=== PATIENT | male | born 1955 | race African-American/Black ===

== ENCOUNTER 2016-11-08 01:54 | Inpatient (IN) | payer MEDICARE ==
--- NOTE | ~2016-11-08 | PA ---
Unit #: [id number] #: [id number] [facility]: [facility] AND[facility] [id number] [facility] [address] [place] [address] [id number] MR#: [id number] NAME: JAVI ANDERSON ROOM: P207 Age: 61 Sex: M Admission Date: 11/08/2016 : 1955 Date of Assessment: Attending Physician: Christian Norris M.D. Admitting Physician: Christian Norris M.D. Primary Care Physician: Nabeel Tobin M.D. PSYCHIATRIC ASSESSMENT DATE OF SERVICE 11/08/2016. IDENTIFYING DATA Mr. Anderson is a 61-year-old single disabled male who is a resident of [place], [place] and was transferred to us from [facility] on a voluntary basis. CHIEF COMPLAINT "Suicidal thoughts. HISTORY OF PRESENT ILLNESS Mr. Anderson is a 61-year-old male who took himself to [facility] reporting that he was upset with how he has lived with his life and endorses feelings of hopelessness and helplessness and suicidal ideation and that he had intent to kill himself and verbalized several different plans reporting of suicidal ideation over the last 40 years and increased in intensity this evening. He reports increasing depression and feelings of hopelessness and helplessness and worthlessness and suicidal ideation and intent and plan and was seen to be danger to self and as such, recommendation for an inpatient level of care was made, and the patient was medically cleared and then transferred to us. SUBSTANCE ABUSE HISTORY The patient reports a history of experimentation with alcohol, cocaine, amphetamines and benzodiazepines, and reports more recently, he has been on 6-day binge of crack cocaine and has been using an unknown amount on a daily basis. PAST PSYCHIATRIC HISTORY The patient has had a history of inpatient psychiatric hospitalization at [facility] in 2014. Review of the medical records indicate currently he is not active in any treatment program, and he is not seeing a psychiatrist and he is not taking any psychotropic medications. PAST MEDICAL HISTORY Hypertension and arthritis. ALLERGIES No known medication allergies. PERSONAL AND SOCIAL HISTORY A 61-year-old male who reports that he is single, Unit #: [id number] #: [id number] Patient: JAVI ANDERSON unemployed and essentially homeless and has poor social support system. MENTAL STATUS EXAMINATION An elderly male who was casually dressed with a fair personal hygiene and appears to be in no acute distress or discomfort. He was awake and alert on interaction with intact orientation to time, place, and person. His mood was anxious and depressed with a congruent affect. His speech is slow and restricted in content. His thought processes were disorganized with some looseness of associations and suicidal ideations. His insight and judgment remain significantly impaired. DIAGNOSTIC IMPRESSION Psychiatric: Major depressive disorder, recurrent, moderate, without psychotic features. Cocaine dependence, moderate. Medical: Hypertension. Stressors: Moderate psychosocial stressors. TREATMENT PLAN 1. The patient has presented with a history of substance abuse and mood disorder and has been decompensating and will need inpatient hospitalization for safety and stabilization. We will start him back on his home medications. We will adjust the medications and monitor response. 2. Supportive therapy was provided to the patient. 3. Safe, structured, and nourishing environment will be provided. ESTIMATED LENGTH OF STAY 5 to 7 days. ABILITY TO HELP SELF Limited. WILLINGNESS TO HELP SELF The patient appears to be willing to help self. STRENGTHS 1. Communicative. 2. Cooperative. PROBLEMS 1. Chronic dysphoric symptoms. 2. Chronic chemical dependency. 3. Poor social support system. DISCHARGE CRITERIA This will be contingent upon the patient's ability to go through detox without having any significant withdrawal symptoms as well as his ability to stay safe to himself, particularly after discharge from the hospital. Dictated by... Christian Norris M.D. LEE/marco antonio TD: 11/08/2016 07:22 Unit #: [id number] #: [id number] Patient: JAVI ANDERSON JOB #: [id number] PSYCHIATRIC ASSESSMENT Page 1 of 1 X Christian Norris MD X PSYCHIATRIC ASSESSMENT
--- NOTE | ~2016-11-08 | DS ---
Unit #: [id number] #: [id number] [facility]: [facility] [id number] [facility] [address] [place] [address] [id number] I MR#: [id number] NAME: JAVI WEI ROOM: P207 Age: 61 Sex: M Admission Date: 11/08/2016 : 1955 Discharge Date: Attending Physician: Christian Norris M.D. Primary Care Physician: Nabeel Tobin M.D. DISCHARGE SUMMARY IDENTIFYING DATA Mr. Wei is a 61-year-old male, who is a resident of [place], [place], and was transferred to from [facility]. DISCHARGE DIAGNOSES Psychiatric: Major depressive disorder, recurrent, moderate, without psychotic features; cocaine dependence, moderate. Medical: None. Stressors: Moderate psychosocial stressors. HISTORY OF PRESENT ILLNESS Please see initial psychiatric evaluation for details. PAST PSYCHIATRIC HISTORY Please see initial psychiatric evaluation for details. PAST MEDICAL HISTORY Please see initial psychiatric evaluation for details. HOSPITAL COURSE The [facility] and was oriented to the hospital environment. Routine p.r.n. medications were initiated, and he was started on Wellbutrin XL 150 mg a day and was closely monitored. He was taking the medications regularly and was tolerating them fairly well and was able to come out of the detox without any complications and was willing to continue treatment on an outpatient basis and as such, it was decided that he will be discharged home and will continue treatment on an outpatient basis. DISCHARGE MEDICATIONS Wellbutrin XL 150 mg a day for depression. DISCHARGE CONDITION Stable. PROGNOSIS Fair. Dictated by... Christian Norris M.D. IAA/modl Unit #: [id number] #: [id number] Patient: JAVI WEI TD: 11/15/2016 07:45 JOB #: [id number] DISCHARGE SUMMARY Page 1 of 1 X Christian Norris MD X DISCHARGE SUMMARY
--- NOTE | ~2016-11-08 | PN ---
Unit #: [id number] #: [id number] Patient: JAVI ANDERSON [id number] [facility] [address] [place] [address] [id number] I MR#: [id number] NAME: JAVI ANDERSON ROOM: P207 Age: 61 Sex: M Admission Date: 11/08/2016 : 1955 Attending Physician: Christian Norris M.D. Admitting Physician: Christian Norris M.D. Primary Care Physician: Nabeel Tobin M.D. [facility] PROGRESS NOTES DATE 11/13/2016 DISCUSSION Mr. Anderson is a 61-year-old male who was seen today and chart was reviewed and case was discussed with the staff. He has been anxious, withdrawn though has not shown any agitation, irritability and has been cooperative with treatment recommendations as he has been taking medications and has been reporting some persistent depression and anxiety and feelings of hopelessness and suicidal ideation. MENTAL STATUS EXAMINATION An elderly male who was casually dressed with fair personal hygiene and appears to be in no acute distress or discomfort. He was awake and alert with impaired attention and concentration. His mood was anxious and depressed with congruent affect. His speech is slow and goal-directed. He denies any suicidal or homicidal ideations. His insight remains slightly impaired. TREATMENT PLAN 1. Will continue on his current medications and treatment protocol. Will monitor response adjustments as needed. 2. Will continue to follow up. Dictated by... Sang Craft/felipe TD: 11/14/2016 23:04 JOB #: [id number] Unit #: [id number] #: [id number] Patient: JAVI ANDERSON PEAMIKI PROGRESS NOTES Page 1 of 1 X Christian Norris MD X PROGRESS NOTE
--- NOTE | ~2016-11-08 | PN ---
Unit #: [id number] #: [id number] Patient: JAVI ANDERSON [id number] [facility] [address] [place] [address] [id number] I MR#: [id number] NAME: JAVI ANDERSON ROOM: P207 Age: 61 Sex: M Admission Date: 11/08/2016 : 1955 Attending Physician: Christian Norris M.D. Admitting Physician: Christian Norris M.D. Primary Care Physician: Nabeel Tobin M.D. [facility] PROGRESS NOTES DATE 11/11/2016 DISCUSSION Mr. Anderson is a 61-year-old, male who was seen today and chart was reviewed and case was discussed with the staff. He remains anxious, withdrawn, depressed and seclusive to himself appears to be quite disorganized and has not been able to get out of his room and just stays there and sleeps and does not participate much in treatment related activities. MENTAL STATUS EXAM An elderly male who was casually dressed with fair personal hygiene, appears to be in no acute distress or discomfort. He was awake and alert with impaired attention and concentration. His mood was anxious with congruent affect. He denies any suicidal or homicidal ideation. His insight and judgement remains slightly impaired. TREATMENT PLAN 1. We will continue him on his current medications and treatment protocol. We will monitor his response to the medication and make further adjustments as needed. 2. We will continue to follow up. Dictated by... Sang Craft/janet TD: 11/13/2016 03:38 JOB #: [id number] Unit #: [id number] #: [id number] Patient: JAVI ANEDRSON PEAMIKI PROGRESS NOTES Page 1 of 1 X Christian Norris MD PROGRESS NOTE
--- NOTE | ~2016-11-08 | EKG ---
PATIENT: JAVI WEI UNIT #: [id number] Ventricular Rate: 70 BPM Atrial Rate: 70 BPM P-R Interval: 198 ms QRS Duration: 76 ms Q-T Interval: 406 ms QTC Calculation(Bezet): 438 ms P Kennard: -22 degrees Calculated R Kennard: 106 degrees Calculated T Kennard: 32 degrees Diagnosis Line: Sinus rhythm with Premature atrial complexes Diagnosis Line: Rightward axis Diagnosis Line: Low voltage QRS Diagnosis Line: Nonspecific T wave abnormality Diagnosis Line: Abnormal ECG Diagnosis Line: When compared with ECG of 16-NOV-2016 08:55, Diagnosis Line: (unconfirmed) Diagnosis Line: No significant change was found Diagnosis Line: Confirmed by SELENA LAFLEUR MD ([id number]) on 11/17/2016 Diagnosis Line: 6:05:21 AM INTERPRETING MD: CIARRA WALL
--- NOTE | ~2016-11-08 | CO ---
Unit #: [id number] #: [id number] Patient: KARMEN WEI [id number] [place] [address] [id number] I MR#: [id number] NAME: KARMEN WEI [facility]OM: [facility] Age: 61 Sex: M Admission Date: 11/08/2016 : 1955 Attending Physician: Christian Norris M.D. Primary Care Physician: Nabeel Tobin M.D. Consultation Date: 11/11/2016 CONSULTATION REPORT HISTORY OF PRESENT ILLNESS Karmen has a history of high blood pressure, AFib, and prostate problems and has been taking medication for these. He is currently homeless and does not have access to his medication. He believes he was on lisinopril and metoprolol, also believes he was taking Flomax at one point and we were unable to verify medications with pharmacy currently. Blood pressures here have been 195/126 and 135/88. He does have p.r.n. clonidine order. No complaints. PHYSICAL EXAMINATION CARDIAC: Regular rate and rhythm. No murmurs, gallops, or rubs. RESPIRATORY: Clear to auscultation bilaterally. ASSESSMENT AND PLAN 1. Hypertension. We will restart lisinopril 20 mg p.o. daily. 2. Benign prostatic hypertrophy. We will restart Flomax 0.4 mg p.o. daily. 3. History of atrial fibrillation. We will restart metoprolol 25 mg p.o. daily. Please notify if abnormal heart rhythm. Dictated by... Dot Zuniga/marco antonio TD: 11/24/2016 00:57 JOB #: [id number] CONSULTATION REPORT Page 1 of 1 X RACHEL KLINE APRN X CONSULTATION REPORT
--- NOTE | ~2016-11-08 | PN ---
Unit #: [id number] #: [id number] Patient: JAVI ANDERSON [id number] [facility] [address] [place] [address] [id number] I MR#: [id number] NAME: JAVI ANDERSON ROOM: P207 Age: 61 Sex: M Admission Date: 11/08/2016 : 1955 Attending Physician: Christian Norris M.D. Admitting Physician: Christian Norris M.D. Primary Care Physician: Nabeel Tobin M.D. [facility] PROGRESS NOTES DATE OF SERVICE 11/10/2016 DISCUSSION Mr. Anderson is a 61-year-old male who was seen today. Chart was reviewed and case was discussed with the staff who reported the patient has been very withdrawn and seclusive to himself and has been isolating himself and has been exhibiting significant depressive symptom. On approach, the patient once again would not interact or talk very much with me. Meanwhile, he has been taking the medications and tolerating them fairly well with no reported side effects. MENTAL STATUS EXAMINATION An elderly male who is casually dressed with fair personal hygiene, appears to be in no acute distress or discomfort. He was awake and alert with impaired attention and concentration. His mood is anxious with a congruent affect. Speech is slow and restricted in content. His thought processes were disorganized with some looseness of associations and flight of ideas. His insight and judgment remain significantly impaired. TREATMENT PLAN 1. We will continue him on his current medications and treatment protocol. We will monitor his response to the medications and make further adjustments as needed. 2. We will continue to follow up. Dictated by... Sang Craft/honorio TD: 11/11/2016 09:05 JOB #: [id number] Unit #: [id number] #: [id number] Patient: JAVI ANDERSON PROGRESS NOTES Page 1 of 1 X Christian Norris MD PROGRESS NOTE
--- NOTE | ~2016-11-08 | PN ---
Unit #: [id number] #: [id number] Patient: JAVI ANDERSON [id number] [facility] [address] [place] [address] [id number] I MR#: [id number] NAME: JAVI ANDERSON ROOM: P207 Age: 61 Sex: M Admission Date: 11/08/2016 : 1955 Attending Physician: Christian Norris M.D. Admitting Physician: Christian Norris M.D. Primary Care Physician: Nabeel Tobin M.D. [facility] PROGRESS NOTES DATE 11/12/2016 DISCUSSION Mr. Anderson is a 61-year-old, male who was seen today and chart was reviewed and case was discussed with the staff. He has been anxious, withdrawn, seclusive to himself reports not feeling good after his RPR came back to be positive and he got diagnosed with syphilis and has been anxious, withdrawn stating that he is not ready to leave the hospital and that he feels like he needs more help and would like to consider getting into intermediate chemical dependence rehab level of care after (1)____ his medical detox treatment here. MENTAL STATUS EXAM An elderly male who was casually dressed with fair personal hygiene, appears to be in no acute distress or discomfort. He was awake and alert on interaction with intact orientation. His mood was anxious with congruent affect. He denies any suicidal or homicidal ideation. His insight and judgement remains slightly impaired. TREATMENT PLAN 1. We will continue him on his current medications and treatment protocol. We will monitor his response to the medication and make further adjustments as needed. 2. We will continue to follow up. Dictated by... Sang Craft/janet TD: 11/13/2016 23:01 JOB #: [id number] Unit #: [id number] #: [id number] Patient: JAVI ANDERSON PROGRESS NOTES Page 1 of 1 X Christian Norris MD X PROGRESS NOTE
--- NOTE | ~2016-11-08 | CO ---
Unit #: [id number] #: [id number] Patient: KARMEN WEI [id number] [place] [address] [id number] I MR#: [id number] NAME: KARMEN WEI ROOM: P207 Age: 61 Sex: M Admission Date: 11/08/2016 : 1955 Attending Physician: Christian Norris M.D. Primary Care Physician: Nabeel Tobin M.D. CONSULTATION REPORT SUBJECTIVE Karmen is a 61-year-old who reported falling in the shower early on the morning of 11/13/2016. This was not witnessed. He told nursing staff that he struck the right side of his head. There is no LOC. Since that time, he has complained of a dull headache. He has had no nausea, vomiting, or visual problems. I saw him later in the afternoon on 11/13/2016. His headache had resolved and he had only complains of some discomfort along the right side of his scalp. OBJECTIVE GENERAL: Alert, well nourished, in no apparent distress. VITAL SIGNS: Blood pressure 126/88, heart rate 80, respirations 16, temperature 98.6, weight 280, height 6 feet 5 inches. HEENT: Normocephalic. Skin is intact. Oral and nasal passages clear. Conjunctivae clear. Pupils are equal, round, reactive to light. Extraocular movements intact. CARDIOVASCULAR: Rate and rhythm is regular. Neuro cranial nerves 2-12 intact. Hand marketing project coordinator is equal. Sensory and coordination intact. Gait normal. ASSESSMENT The patient reports a fall earlier the morning of her early the morning of 11/13/2016. PLAN Tylenol p.r.n. We will continue to observe for 48 to 72 hours. He is on Eliquis 5 mg b.i.d. Nursing staff knows to report any mental changes or development of vomiting or visual problems. Dictated by... Carla Gaviria P.A.-C. for Sang García/marco antonio TD: 11/14/2016 17:47 JOB #: [id number] Unit #: [id number] #: [id number] Patient: KARMEN WEI CONSULTATION REPORT Page 1 of 1 X Carla Gaviria CONSULTATION REPORT
--- NOTE | ~2016-11-08 | PN ---
Unit #: [id number] #: [id number] Patient: KARMEN ANDERSON [id number] [facility] [address] [place] [address] [id number] I MR#: [id number] NAME: KARMEN ANDERSON ROOM: P207 Age: 61 Sex: M Admission Date: 11/08/2016 : 1955 Attending Physician: Christian Norris M.D. Admitting Physician: Christian Norris M.D. Primary Care Physician: Nabeel Tboin M.D. [facility] PROGRESS NOTES DATE OF SERVICE 11/14/2016 DISCUSSION Karmen Anderson is a 61-year-old male with mood disorder who was seen today. Chart was reviewed and case was discussed with staff. He has been anxious, withdrawn, depressed, and rather seclusive to himself and has been expressing feelings of hopelessness and helplessness. Meanwhile, he has been taking the medications and tolerating them fairly well with no reported side effects. MENTAL STATUS EXAMINATION An elderly male who is casually dressed with fair personal hygiene, appears to be in no acute distress or discomfort. He was awake and alert with impaired attention and concentration. His mood is anxious with congruent affect. Speech is slow and restricted in content. His thought processes were disorganized with some looseness of associations and suicidal ideations. His insight and judgment remain significantly impaired. TREATMENT PLAN 1. We will continue him on his current treatment protocol. We will monitor his response to the medications and make further adjustments as needed. 2. We will continue to follow up. Dictated by... Sang Craft/honorio TD: 11/15/2016 14:48 JOB #: [id number] Unit #: [id number] #: [id number] Patient: KARMEN ANDERSON PROGRESS NOTES Page 1 of 1 X Christian Norris MD PROGRESS NOTE
--- NOTE | ~2016-11-08 | PN ---
Unit #: [id number] #: [id number] Patient: JAVI ANDERSON [id number] [facility] [address] [place] [address] [id number] MR#: [id number] NAME: JAVI ANDERSON ROOM: P207 Age: 61 Sex: M Admission Date: 11/08/2016 : 1955 Attending Physician: Christian Norris M.D. Admitting Physician: Christian Norris M.D. Primary Care Physician: Nabeel Tobin M.D. [facility] PROGRESS NOTES DATE November 09, 2016 DISCUSSION Mr. Anderson is a 61-year-old male, who was seen today and chart was reviewed and the case was discussed with the staff. He has been anxious, withdrawn, depressed, and seclusive to himself. Meanwhile, he has been cooperative with the treatment recommendations and he has been taking the medications and tolerating them fairly well. MENTAL STATUS EXAMINATION An elderly male, who was casually dressed with fair personal hygiene and appears to be in no acute distress or discomfort. He was awake and alert with impaired attention and concentration. His mood is anxious with a congruent affect. His speech is slow and goal-directed. He denies any suicidal or homicidal ideations, and also denies any auditory or visual hallucinations. His insight and judgment remain slightly impaired. TREATMENT PLAN 1. We will continue him on his current medications and treatment protocol, and will monitor his response to the medications, and make further adjustments as needed. 2. We will continue to followup. Dictated by... Sang Craft/suman TD: 11/10/2016 05:45 JOB #: [id number] Unit #: [id number] #: [id number] Patient: JAVI ANDERSON [place] PROGRESS NOTES Page 1 of 1 X Christian Norris MD PROGRESS NOTE
--- NOTE | ~2016-11-08 | HP ---
Unit #: [id number] #: [id number] Patient: KARMEN WEI [id number] [place] [address] [id number] MR#: [id number] NAME: KARMEN WEI ROOM: P207 Age: 61 Sex: M Admission Date: 11/08/2016 : 1955 Attending Physician: Christian Norris M.D. Admitting Physician: Christian Norris M.D. Primary Care Physician: Nabeel Tobin M.D. HISTORY AND PHYSICAL HISTORY OF PRESENT ILLNESS Karmen is a 61 year old admitted to [address] [place] [address] because of his polysubstance abuse which includes alcohol and cocaine. PAST MEDICAL HISTORY 1. Long history of alcohol abuse 2. History of illicit substance abuse to include cocaine 3. High blood pressure 4. Degenerative disc disease PAST SURGICAL HISTORY Nothing reported ALLERGIES No known drug allergies. SOCIAL HISTORY Smokes one pack per day. Drinks alcohol daily. Admits to regular use of cocaine. FAMILY HISTORY Medically noncontributory. REVIEW OF SYSTEMS CONSTITUTIONAL: No fever or chills. HEENT: Denies any sore throat, ear pain or runny nose. CARDIOVASCULAR: Denies chest pain, irregular heart rhythm or palpitations. CHEST: Denies shortness of breath or cough. No hemoptysis. GASTROINTESTINAL: Denies nausea, vomiting, diarrhea or chronic constipation. ENDOCRINE: Denies history of increased thirst or urination. No recent significant weight loss or gain. GENITOURINARY: Denies dysuria, frequency, or hematuria. SKIN: Denies any rashes. HEMATOLOGIC: Denies history of increased bleeding or bruising. MUSCULOSKELETAL: Denies any hot, swollen joints. No generalized muscle pain. NEUROLOGIC: Denies problems with vision or speech. No frequent, severe headaches. No numbness, tingling or weakness in any extremities. Denies loss of bladder or bowel control. He denies any history of syphilis. Unit #: [id number] #: [id number] Patient: KARMEN WEI CURRENT MEDICATIONS 1. Detox protocol 2. Wellbutrin XL 150 mg daily 3. Eliquis 5 mg b.i.d. 4. Multivitamin 1 q day 5. Levaquin 500 mg q day PHYSICAL EXAMINATION GENERAL: Alert, well-nourished, in no apparent distress. VITAL SIGNS: Blood pressure 130/72, heart rate 80, respirations 16, temperature 98.6. WEIGHT: 280 pounds. HEIGHT: 6'5". SKIN: Warm and dry without rash or lesion. HEENT: Normocephalic. TMs not viewed. Oral and nasal passages clear. Conjunctivae clear. Pupils equal, round and reactive to light and accommodation. Extraocular movements intact. NECK: Supple without lymphadenopathy or thyromegaly. HEART: Regular rate and rhythm without murmur. LUNGS: Clear. ABDOMEN: Soft, nontender. : Not done. EXTREMITIES: No evidence of cyanosis, clubbing or edema. Moves all extremities without focal deficit. NEUROLOGICAL: Grossly within normal limits. Cranial Nerves: II: Visual galindo are intact. III, IV AND : Extraocular movements are intact. Pupils are equal, round and reactive to light. V: Facial sensation is grossly normal. VII: Facial movements and expression are normal. VIII: Auditory acuity grossly intact. IX, X: Uvula is midline. Phonation is normal. XI: Patient shrugs shoulders and turns head normally. XII: Tongue protrudes in the midline. Sensory and Motor Function: Sensory and motor sensation is grossly normal. Motor: moves all extremities well. Coordination: Gait is normal. Deep Tendon Reflexes: Intact. ADMISSION LABS RPR positive with 1 to 2 dilution FTA pending. IMPRESSION Psychiatric admission RECOMMENDATIONS PSYCHIATRIC: Per psychiatrist. MEDICAL: 1. I see no contraindications to participating in facility's activities. 2. Await the results of the FTA. MEDICAL PROGNOSIS Good. MEDICAL CONDITION Stable. Unit #: [id number] #: [id number] Patient: KARMEN WEI Dictated by... Carla Gaviria P.A.-C. for Sang aGrcía/janet TD: 11/08/2016 20:56 JOB #: [id number] HISTORY AND PHYSICAL Page 1 of 1 X Carla Gaviria X HISTORY AND PHYSICAL
[~2016-11-08 01:54] MED LIST: CYMBALTA PO; CYMBALTA30 MG PO; FLEXERIL10 MG PO; FLOMAX0.4 M1 PO; HYDROCHLOROTHIA25 MG PO; HYDROCODON-ACE1 EAC5 PO; LISINOPRIL10 MG PO; MED FOR SLEEP; MEDROL DOSEPAK4 MG PO; NORVASC10 MG PO; ZOLPIDEM TARTRA10 MG PO
[2016-11-08 12:37] LABS: BASOPHIL# 0.1 X10e3 (0-0.3); BASOPHIL% 2.7 % (0-2.5); EOSINOPHIL# 0.1 X10e3 (0-0.7); EOSINOPHIL% 2.7 % (0.0-7.0); HEMATOCRIT 42.5 % (38.0-50.0); HEMOGLOBIN 13.4 gm/dL (13.0-16.0); LYMPHOCYTE# 1.6 X10e3 (1.0-3.5); LYMPHOCYTE% 37.6 % (17.0-45.0); MEAN CORPUSCULAR HEMOGLOBIN 27.8 PG (28-34); MEAN CORPUSCULAR HGB CONC 31.5 g/dL (30-36); MEAN PLATELET VOLUME 10.5 FL (6.5-11.5); MONOCYTE# 0.6 X10e3 (0-1.0); MONOCYTE% 13.4 % (3.0-12.0); NEUTROPHIL# 1.9 X10e3 (1.5-7.1); NEUTROPHIL% 43.6 % (40-75); PLATELET COUNT 264 X10e3 (140-420); RED BLOOD COUNT 4.83 X10e (3.90-5.60); RED CELL DISTRIBUTION WIDTH 15.3 % (11.0-15.5); WHITE BLOOD COUNT 4.4 X10e3 (4.0-10.5)
[2016-11-08 12:41] LABS: DIFF IND NO
[2016-11-08 12:57] LABS: ALBUMIN SERUM 3.1 g/dL (3.5-5.0); BILIRUBIN,TOTAL 0.6 mg/dL (0.2-2.0); BUN/CREATININE RATIO 6.92; CALCIUM SERUM 8.5 mg/dL (8.4-10.2); CREATININE SERUM 1.3 mg/dL (0.6-1.4); GLOM FILT RATE Estimated 67.3 mL/min (>60); POTASSIUM 3.2 mmol/L (3.5-5.1)
[2016-11-08 12:58] LABS: THYROID STIMULATING HORMONE 0.98 uIU/ml (0.34-5.60)
[2016-11-08 13:05] LABS: FREE THYROXIN (T4) 0.92 ng/dL (0.58-1.64)
[2016-11-09 10:07] LABS: URINE APPEARANCE CLOUDY; URINE BILIRUBIN NEG (NEG); URINE BLOOD NEG (NEG); URINE COLOR YELLOW; URINE GLUCOSE NEG (NEG); URINE KETONE NEG (NEG); URINE LEUKOCYTE ESTERASE NEG (NEG); URINE NITRATE NEG (NEG); URINE PH 6.5 (5-8); URINE PROTEIN NEG (NEG); URINE SPECIFIC GRAVITY 1.008 (1.003-1.035)
[2016-11-09 10:27] LABS: AMPHETAMINE NEG (NEG); BARBITURATES NEG (NEG); BENZODIAZEPINES NEG (NEG); COCAINE POS (NEG); MARIJUANA NEG (NEG); OPIATES POS (NEG); TRICYCLIC ANTIDEPRESSANTS NEG (NEG); U METHADONE NEG (NEG)
== END 2016-11-16 16:30 | DRG 885 ==
LOC: P2S 01:54
PROVIDERS: Psychiatry & Neurology Psychiatry
PROC: HZ2ZZZZ Detoxification Services for Substance Abuse Treatment (ICD-10-PCS; principal; 2016-11-08)
DX: F33.1 Major depressive disorder, recurrent, moderate (principal); F14.20 Cocaine dependence, uncomplicated; R51 Headache; W18.2XXA Fall in (into) shower or empty bathtub, initial encounter
CPT/HCPCS: 80053; 80307; 81003; 84439; 84443; 85025; 86592; 86780; 93005; J0561